=== PATIENT | female | born 1940 | race Caucasian/White ===

== ENCOUNTER 2016-11-26 08:53 | Day surgery (SDC) | payer MEDICARE, BC ==
[2016-11-26] MEDS ORDERED: LIDOCAINE 2% MDV (20MG/ML) 20ML VIAL IV ONE (14:00)
[2016-11-26] MEDS ORDERED: PROPOFOL 10 MG/ML VIAL IV ONE (14:00)
--- NOTE | 2016-12-01 11:20 | Operative Note ---
DATE OF SURGERY: 11/26/2016 OPERATION: COLONOSCOPY with cold snare polypectomy. PREOPERATIVE DIAGNOSIS: Personal history of colon polyps. POSTOPERATIVE DIAGNOSIS: Ascending colon polyp. PROCEDURE: After informed consent was obtained from the patient and her family, she was placed in the left lateral decubitus position in the endoscopy suite, sedated and monitored by the department of anesthesia. Digital rectal exam was unremarkable. A well-lubricated [id number] colonoscope was inserted into the rectum and advanced to the cecum. The cecum and cecal bulb were unremarkable. The ascending colon revealed a sessile polyp removed with a cold snare. Minimal bleeding was noted. The remainder of the ascending colon, transverse colon, descending colon, sigmoid colon, and rectum were otherwise unremarkable. No polyps, mass lesions, or inflammation otherwise seen. The rectum was unremarkable in forward and in J-turn views. The endoscope was straightened, the rectal ampulla deflated, and the endoscope was removed. RECOMMENDATIONS: Given the patient's overall health, I do not believe repeated surveillance seems necessary. I would repeat her exam if there is some new symptom complex change, but to pursue continued surveillance given her overall comorbidities does not seem to be prudent. As always, thank you for allowing me to participate in the healthcare of your patients. CC: STEFFANIE Mayer
== END 2016-11-26 10:20 | disposition home or self-care (01) ==
LOC: HOP 08:53
PROVIDERS: ATTEND Internal Medicine Gastroenterology
DX: Z86.010 Personal history of colon polyps (principal); D12.2 Benign neoplasm of ascending colon; I10 Essential (primary) hypertension; E03.9 Hypothyroidism, unspecified